=== PATIENT | female | born 1960 | race Caucasian/White ===

== ENCOUNTER 2019-04-14 08:11 | Outpatient (CLI) | payer MEDICARE, BC, SELFPAY ==
--- NOTE | 2019-04-14 08:42 | NM_ITS ---
WS: [id number] Nuclear medicine whole body bone scan, 04/14/2019 Clinical Data: BREAST CANCER/RESTAGING/BONE PAIN Comparison: None. Findings: After the intravenous injection of 24.4 mCi of technetium 99m HDP anterior and posterior wh ole body images were obtained. Additional lateral imaging of the cervical spine, right upper extremit y and skull was performed. The distribution of the radionuclide was normal. Normal renal function could be seen. No evidence of any abnormally increased or decreased activity could be seen. There is no evidence of metastatic dise ase. NM/NM bone scan whole body* [id number] Impression: Negative whole body bone scan.
== END 2019-04-14 08:12 | disposition home or self-care (01) ==
LOC: RAD 08:20
PROVIDERS: Family Provider Nurse Practitioner Family; PCP Family Medicine; Visit Provider Radiology Radiation Oncology
DX: C50.911 Malignant neoplasm of unspecified site of right female breast (principal); Z17.0 Estrogen receptor positive status [ER+]; M89.8X9 Other specified disorders of bone, unspecified site
CPT/HCPCS: 78306; A9561

== ENCOUNTER 2019-05-14 06:00 | Outpatient (CLI) | payer MEDICARE, BC, SELFPAY ==
[2019-05-14 14:23] LABS: Basophils % 0.3 %; Eosinophils # 0.1 10^3/uL (0.0-0.8); Eosinophils % 1.6 %; Hemoglobin 12.5 g/dL (11.5-15.3); Lymphocytes # 1.7 10^3/uL (0.8-4.8); Lymphocytes % 26.9 %; Mean Corpuscular HGB Conc 32.1 g/dL (30.0-36.0); Mean Corpuscular Hemoglobin 30.9 pg (28.0-34.0); Mean Corpuscular Volume 96.3 fL (81-99); Mean Platelet Volume 10.7 fL (7.4-10.4); Monocytes # 0.6 10^3/uL (0.2-0.9); Monocytes % 8.8 %; Neutrophils % 62.1 %; Nucleated Red Blood Cells % 0 %; Platelet Count 137 10^3/cmm (130-400); Red Blood Count 4.05 10^6/uL (4.1-5.3); Red Cell Distribution Width 12.9 % (12.1-15.1); White Blood Count 6.4 10^3/uL (4.0-10.0)
[2019-05-14 14:40] LABS: Alanine Aminotransferase 43 U/L (0-33); Albumin Level 3.9 g/dL (3.5-5.2); Alkaline Phosphatase 73 IU/L (35-105); Anion Gap 16.2 (5-19); Aspartate Amino Transferase 57 U/L (0-32); Blood Urea Nitrogen 9 mg/dL (6-20); Calcium 9.9 mg/dL (8.5-10.5); Carbon Dioxide 29 mmol/L (22-29); Chloride 102 mmol/L (98-107); Globulin 3.5 g/dL (1.3-4.6); Glomerular Filtration Rate 57.4 mL/min (90-130); Glucose 217 mg/dL (65-115); Potassium 4.2 mmol/L (3.5-5.1); Sodium 143 mmol/L (136-145); Total Bilirubin 0.3 mg/dL (0.15-1.2); Total Protein 7.4 g/dL (6.6-8.7)
[2019-05-14 15:15] LABS: Estmated Average Glucose 166; Hemoglobin A1C 7.4 % (4.0-6.0)
== END 2019-05-14 06:01 | disposition home or self-care (01) ==
LOC: ONCMED 05-15 10:31
PROVIDERS: Radiology Radiation Oncology; Family Provider Nurse Practitioner Family; PCP Family Medicine; Visit Provider Internal Medicine Medical Oncology
DX: C50.811 Malignant neoplasm of overlapping sites of right female breast (principal); D50.8 Other iron deficiency anemias; E55.9 Vitamin D deficiency, unspecified; Z17.0 Estrogen receptor positive status [ER+]; Z79.899 Other long term (current) drug therapy
CPT/HCPCS: 80053; 83036; 85025

== ENCOUNTER 2019-12-18 10:49 | Emergency (ER) | payer MEDICARE, BC, SELFPAY ==
[2019-12-18 11:08] VITALS: BP 126/81; PULSE 73; RESP 18; TEMP 36.2; O2SAT 95; BMI 34.9
--- NOTE | 2019-12-18 11:14 | CT_ITS ---
WS: [id number] CT ABDOMEN AND PELVIS WITH CONTRAST HISTORY: Left-sided abdominal pain with distention. History of breast cancer. TECHNIQUE: Imaging performed of the abdomen and pelvis with IV contrast. Single phase imaging of the abdomen. Coronal and sagittal reformats are submitted. All CT scans at [facility] use at least one of these dose optimization techniques: automated exposure control; mA and/or kV adjustment per patient size (includes targeted exams where dose is matched to clinical indication); or iterativ e reconstruction. IV CONTRAST: Visipaque 320; 95 mL IV. Oral contrast: No DLP: 1298.76 mGy.cm COMPARISON: 05/20/2017 Lower thorax: Lung bases are clear. Moderate cardiomegaly. Small hiatal hernia. Liver/biliary system: Liver is moderately enlarged. No mass or bile duct dilatation. Gallbladder: Mildly hydropic gallbladder. No adjacent wall thickening or fluid. Common bile duct is n ormal size. Small stones in the gallbladder cannot be excluded. Pancreas: Normal. Spleen: Normal. Adrenal glands: Normal. Right kidney: Normal. Left kidney: Nonobstructing 2 mm stone lower pole. No hydronephrosis or mass. Aorta: Mild atherosclerosis with no aneurysm. Lymphadenopathy: There are small RIGHT lower quadrant lymph nodes. Free fluid: None. GI tract: The appendix is normal. Very subtle area of inflammation and wall thickening involving the small bowel in the central pelvis. Terminal ileum also has very mild wall thickening and hyperemia. V tate subtle changes of inflammation. No evidence for diverticulitis or obstruction. Abdominal wall: Unremarkable abdominal wall. No hernia. Pelvis: Small amount of air in the urinary bladder from recent catheterization probably. Bones: Mild degenerative disc disease at L5-S1. CT/CT abdomen pelvis w con* [id number] IMPRESSION: 1. Normal appendix. 2. Hydropic appearing gallbladder without adjacent inflammation. 3. There is a small amount of edema with mild wall thickening involving the di stal small bowel. Consider mild enterocolitis. No GI tract obstruction or diver ticulitis.
--- NOTE | 2019-12-18 11:41 | W.ED.ABDPA2 ---
HPI - Abdominal Pain General: Chief Complaint: Abdominal Pain Stated Complaint: ABD PAIN Time Seen by Provider: 12/18/19 11:14 History of Present Illness: HPI narrative: Patient over by urgent care for abdominal pain. Patient had a problem with constipation the last 3 days. She is on Dilaudid for pain related to her cancer treatment that she has had. She had history of left breast cancer with mastectomy and then had recent tumors in her skin that removed back in April. Patient states her bowels are working good she is hurting more in the left lower side. Says she is having swelling on her left side of her abdomen MD elicited complaint: abdominal pain Pertinent past history: constipation Onset (ago): day(s) Pain Consistency: constant Location: LLQ Severity: moderate Quality: cramping and aching Exacerbating factors: nothing Relieving factors: nothing Associated Symptoms: Reports constipation; Denies chills and fever(s) Review of Systems Const: Denies: fever(s), chills or body aches Eyes: Denies: change in vision or blurry vision ENMT: Denies: throat pain or nasal congestion Card: Denies: chest pain or dyspnea on exertion Resp: Denies: dyspnea, productive cough or non-productive cough GI: Reports: constipation Musc: Denies: extremity pain Skin/Breast: Denies: rash Neuro: Denies: headache(s) Psych: Denies: anxiety or depression Ignacio/Lymph: Denies: easy bruising [facility] ED PFSH: Social History (Updated 12/18/19 @ 10:27 by Tatyana Cruz LPN) Smoking and tobacco status: never smoked Alcohol intake: never Physical Exam Const: COMMON NORMALS: no acute distress, average body habitus and patient oriented x3 HENMT: COMMON NORMALS: normocephalic HEAD & SCALP: normal to inspection and normocephalic FACE & SINUS: normal facial exam Eye: COMMON NORMALS: conjunctivae normal GENERAL EYE: appearance normal, both eyes and all related structures CONJUNCTIVA: Yes conjunctivae normal Neck/C-Spine: COMMON NORMALS: no JVD Chest: COMMONS NORMALS: normal inspection of the chest Resp: COMMON NORMALS: normal respiratory effort and clear to auscultation bilaterally AUSCULTATION: clear to auscultation bilaterally Cardio: COMMON NORMALS: no JVD, regular rate and regular rhythm RATE: regular rate RHYTHM: regular rhythm GI: AUSCULTATION: Yes Hypoactive bowel sounds present PALPATION: Yes Tenderness to palpation present (GI) Details: LLQ PERCUSSION: dullness to percussion Extremity: COMMON NORMALS: normal to inspection and full ROM Neuro: COMMON NORMALS: patient oriented x3 Course Vital Signs: Vital signs: Vital Signs Temperature 97.2 F L 12/18/19 11:08 Pulse Rate 74 12/18/19 14:25 Respiratory Rate 18 12/18/19 14:25 Blood Pressure 141/70 12/18/19 14:25 Pulse Oximetry 98 12/18/19 14:25 MDM - Abdominal Pain MDM Narrative: Medical decision making narrative: Went over test results patient CT is negative patient is worried that cancer might spread from her previous breast cancer she had. Patient will increase fiber in diet drink more fluids take stool softener and laxative. Lab Data: Labs: Lab Results 12/18/19 12/18/19 12/18/19 Range/Units 12:26 12:26 12:57 WBC 5.8 (4.0-10.0) 10^3/ uL RBC 3.94 L (4.1-5.3) 10^6/u L Hgb 12.1 (11.5-15.3) g/dL Hct 37.5 (37.0-47.0) % MCV 95.2 (81-99) fL MCH 30.7 (28.0-34.0) pg MCHC 32.3 (30.0-36.0) g/dL RDW 13.4 (12.1-15.1) % Plt Count 154 (130-400) 10^3/c mm MPV 10.7 H (7.4-10.4) fL Neut % (Auto) 65.1 % Lymph % (Auto) 21.2 % [place] % (Auto) 10.1 % Eos % (Auto) 2.4 % Baso % (Auto) 0.5 % Neut # (Auto) 3.75 (1.8-7.7) 10^3/u L Lymph # (Auto) 1.2 (0.8-4.8) 10^3/u L [place] # (Auto) 0.6 (0.2-0.9) 10^3/u L Eos # (Auto) 0.1 (0.0-0.8) 10^3/u L Baso # (Auto) 0.0 (0.0-0.1) 10^3/u L Nucleated RBC % (a uto) 0 % Nucleated RBCs # 0.0 /100WBC Sodium 141 (136-145) mmol/L Potassium 3.9 (3.5-5.1) mmol/L Chloride 101 (98-107) mmol/L Carbon Dioxide 29 (22-29) mmol/L Anion Gap 14.9 (5-19) BUN 12 (6-20) mg/dL Creatinine 0.9 (0.5-0.9) mg/dL GFR Calculation 64.5 L (90-130) mL/min Glucose 143 H (65-115) mg/dL Calculated Osmolal ity 294 (285-295) mOsm/k g Calcium 9.9 (8.5-10.5) mg/dL Total Bilirubin 0.5 (0.15-1.2) mg/dL AST 64 H (0-32) U/L ALT 39 H (0-33) U/L Alkaline Phosphata se 104 (35-105) IU/L Total Protein 7.7 (6.6-8.7) g/dL Albumin 4.3 (3.5-5.2) g/dL Globulin 3.4 (1.3-4.6) g/dL Urine Color Yellow (Yellow) Urine Appearance Cloudy (CLEAR) Urine pH 8 H (5-7) Ur Specific Gravit y 1.010 (1.005-1.030) Urine Protein Neg (Negative) Urine Glucose (UA) Norm (Normal) Urine Ketones Negative (Negative) Urine Blood Neg (Negative) Urine Nitrate Positive H (Negative) Urine Bilirubin Neg (Negative) Prot Sulfosalicyli c Acd Negative (Negative) Urine Urobilinogen Norm (Negative) mg/dL Ur Leukocyte Za ase 2+ H (Negative) Urine RBC 0-4 H (0-2) /hpf Urine WBC 15-25 H (0-5) /hpf Ur Squamous Epith Cells 5-10 H (0-5) /hpf Amorphous Sediment Not Reportable Urine Bacteria 4+ H (NONE) /hpf Discharge Plan Discharge Patient Disposition: Home Clinical Impression: Gastroenteritis Condition: Stable Prescriptions: No Action metformin 500 mg tablet 500 mg PO BID RF: 0 fludrocortisone 0.1 mg tablet 0.05 mg PO DAILY RF: 0 multivitamin with minerals [Multiple Vitamin-Minerals] Tablet 1 tab PO DAILY RF: 0 gabapentin 600 mg tablet 600 mg PO TID RF: 0 lorazepam 1 mg tablet 1 mg PO QID PRN (Reason: Anxiety) RF: 0 promethazine 25 mg tablet 25 mg PO Q6H PRN (Reason: N/V) RF: 0 hydromorphone 4 mg tablet 4 mg PO Q6H PRN (Reason: Pain) RF: 0 magnesium oxide [MagOx] 400 mg (241.3 mg magnesium) tablet 400 mg PO DAILY RF: 0 escitalopram oxalate [Lexapro] 20 mg tablet 20 mg PO DAILY RF: 0 famotidine 20 mg tablet 20 mg PO DAILY RF: 0 meloxicam 15 mg tablet 15 mg PO DAILY RF: 0 omeprazole 20 mg capsule,delayed release(DR/EC) 20 mg PO DAILY RF: 0 lisinopril-hydrochlorothiazide 20-12.5 mg tablet 1 tab PO BID RF: 0 Discharge Orders: Discharge Order (Routine); Ordered 12/18/19 Ordered By: Michael Mars Referrals: Camila Garay DO [Primary Care Provider] - Discharge Diet: Advance as tolerated Discharge Activity: Resume usual activity Patient Instructions: Gastroenteritis (ED) Activity Restrictions/Additional Instructions: Follow-up with medical provider as directed. Return to the ER or your medical provider if condition worsens. Please read and understand discharge instructions. If any questions ask please. Discharge Date/Time: 12/18/19 14:26 Coding Level of Care Code ED Orthopedic Specialist for Tamia Fwd Exam Comprehensive
[2019-12-18] MEDS: sodium chloride 0.9% 1,000 ML 999 ML IV (12:21)
[2019-12-18 12:31] LABS: Basophils % 0.5 %; Eosinophils # 0.1 10^3/uL (0.0-0.8); Eosinophils % 2.4 %; Hematocrit 37.5 % (37.0-47.0); Hemoglobin 12.1 g/dL (11.5-15.3); Lymphocytes # 1.2 10^3/uL (0.8-4.8); Lymphocytes % 21.2 %; Mean Corpuscular HGB Conc 32.3 g/dL (30.0-36.0); Mean Corpuscular Hemoglobin 30.7 pg (28.0-34.0); Mean Corpuscular Volume 95.2 fL (81-99); Mean Platelet Volume 10.7 fL (7.4-10.4); Monocytes # 0.6 10^3/uL (0.2-0.9); Monocytes % 10.1 %; Neutrophils # 3.75 10^3/uL (1.8-7.7); Neutrophils % 65.1 %; Nucleated Red Blood Cells % 0 %; Platelet Count 154 10^3/cmm (130-400); Red Blood Count 3.94 10^6/uL (4.1-5.3); Red Cell Distribution Width 13.4 % (12.1-15.1); White Blood Count 5.8 10^3/uL (4.0-10.0)
[2019-12-18] MEDS: iodixanol 320 mg/mL 100mL Btl IV (12:33)
[2019-12-18 13:01] LABS: Alanine Aminotransferase 39 U/L (0-33); Albumin Level 4.3 g/dL (3.5-5.2); Alkaline Phosphatase 104 IU/L (35-105); Anion Gap 14.9 (5-19); Aspartate Amino Transferase 64 U/L (0-32); Blood Urea Nitrogen 12 mg/dL (6-20); Calcium 9.9 mg/dL (8.5-10.5); Carbon Dioxide 29 mmol/L (22-29); Chloride 101 mmol/L (98-107); Globulin 3.4 g/dL (1.3-4.6); Glomerular Filtration Rate 64.5 mL/min (90-130); Glucose 143 mg/dL (65-115); Osmolality Calculated 294 mOsm/kg (285-295); Potassium 3.9 mmol/L (3.5-5.1); Sodium 141 mmol/L (136-145); Total Bilirubin 0.5 mg/dL (0.15-1.2); Total Protein 7.7 g/dL (6.6-8.7)
[2019-12-18 13:57] VITALS: BP 141/70; PULSE 76; RESP 18
[2019-12-18 14:03] VITALS: BP 141/70; PULSE 72; RESP 16
--- NOTE | 2019-12-18 14:05 | PC.NURSE ---
REPORT RECEIVED FROM [facility].
[2019-12-18 14:25] VITALS: BP 141/70; PULSE 74; RESP 18; O2SAT 98
[2019-12-18 14:29] LABS: Add Urine Microscopic? YES; Bilirubin Urine Neg (Negative); Blood Urine Neg (Negative); Glucose Urine UA Norm (Normal); Ketones Urine Negative (Negative); Leukocyte Esterase Urine 2+ (Negative); Nitrate Urine Positive (Negative); Protein Urine Neg (Negative); Sulfosalicylic Acid Urine Negative (Negative); Urine Appearance Cloudy (CLEAR); Urine Color Yellow (Yellow); Urobilinogen Urine Norm (Negative); pH Urine 8 (5-7)
[2019-12-18 14:31] LABS: Bacteria Urine 4+ /hpf
[2019-12-18 14:33] LABS: Add Urine Culture? Yes; RBC Urine 0-4 /hpf (0-2); WBC Urine 15-25 /hpf (0-5)
== END 2019-12-18 14:26 | disposition home or self-care (01) ==
PROVIDERS: Emergency Provider Nurse Practitioner Family; PCP Family Medicine
DX: K52.9 Noninfective gastroenteritis and colitis, unspecified (principal)
CPT/HCPCS: 12345; 74177; 80053; 81001; 85025; 87077; 87086; 87186; 96360; 99282; 99283; J7030; Q9967

== ENCOUNTER 2020-01-08 07:10 | Outpatient (CLI) | payer MEDICARE, BC, SELFPAY ==
--- NOTE | 2020-01-08 07:00 | XR_ITS ---
WS: [id number] KUB, 01/08/2020 Clinical Data: KIDNEY STONE Comparison: CT abdomen, 12/18/2019 Findings: No abnormal intraabdominal masses or calcifications are seen. There is no dilatated small bowel or ev idence of obstruction. There are phleboliths in the true pelvis but no definite ureteral calculi. There is a calcification t o the right of the sacrum just inferior to the right SI joint but this was not present on the CT abdo men pelvis. There is a large amount of fecal material throughout the colon obscuring detail over the kidneys. XR/XR KUB [id number] Impression: 1. Phleboliths in the true pelvis with a calcification to the right of the sacr um. 2. Fecal material obscures detail over both kidneys.
== END 2020-01-08 07:11 | disposition home or self-care (01) ==
LOC: RAD 07:14
PROVIDERS: PCP Family Medicine; Visit Provider Nurse Practitioner Family
DX: N20.0 Calculus of kidney (principal); I87.8 Other specified disorders of veins
CPT/HCPCS: 74018; 80053; 81001

== ENCOUNTER → 2020-03-12 14:11 | Outpatient (BNVA) | payer MEDICARE, BC, SELFPAY | PROVIDERS: PCP Family Medicine; Visit Provider Surgery | DX: R19.4 Change in bowel habit (principal) | CPT/HCPCS: 87635 ==

== ENCOUNTER 2020-03-17 08:17 | Day surgery (SDC) | payer MEDICARE, BC, SELFPAY ==
[2020-03-15 10:28] VITALS: BMI 34.1
[2020-03-17 08:48] VITALS: BP 125/82; PULSE 90; RESP 18; TEMP 36.1; O2SAT 95
[2020-03-17] MEDS: sodium chloride 0.9% 1,000 ML 30 ML IV (08:59)
[2020-03-17 09:02] LABS: Glucose Point of Care 142 mg/dL (70-110)
--- NOTE | 2020-03-17 09:26 | ANES.PREANE2 ---
Pre-Anesthetic Assessment Pre-Anesthetic Assessment: Height/Weight: Height 1.65 m Weight 92.986 kg Temp Pulse Resp BP Pulse Ox 97 F L 90 18 125/82 95 03/17/20 08:48 03/17/20 08:48 03/17/20 08:48 03/17/20 08:48 03/17/20 08:48 Preop Diagnosis: constipation Proposed Procedure: Operation Date: 03/17/20 09:30 Proposed Procedures p Colonoscopy 42246 r19.4(Not Applicable) - Lázaro Kitchen MD Was Beta Kayla taken within 24 hours: Yes Last intake: Intake Last Liquid Date 03/16/20 Last Liquid Time 20:00 Last Solid Date 03/15/20 Last Solid Time 20:00 Social: Social History: No alcohol and No tobacco Exam: Pre-Anes Outpt Exam: alert, oriented x 3, clear to auscultation bilaterally and regular rate & rhythm Airway: Submandibular: WNL Cervical ROM: Other (limited) MP: 2 Pulmonary: Pulmonary: None reported CV/HEM: CV/HEM: HTN : : None reported Hepatic: Hepatic: None reported GI: GI: GERD Metabolic: Metabolic: DM Musc/skel: Musc/skel: None reported Neuropsych: Neuropsych: None reported Anesthetic Plan: ASA status: 3 Anesthesia: MAC Meds/Allergies Current Medications: Current Medications Generic Name Dose Route Start Last Admin Trade Name Freq PRN Reason Stop Dose Admin Sodium Chloride 1,000 mls @ 30 ml s/hr 03/17/20 08:45 03/17/20 08:59 Sodium Chloride 0.9% IV 03/18/20 08:44 30 mls/hr .Q24H MARELY Administration PFSH Anesthesia PFSH: Medical History DM2 (diabetes mellitus, type 2) GERD with esophagitis HTN (hypertension) Hx of breast cancer Hyperlipidemia Left renal stone Surgical History H/O breast biopsy H/O mastectomy BILATERAL History of back surgery Hx of breast implants, bilateral REMOVAL Status post colonoscopy Family History Denies family history of Anesthesia complication Bleeding disorder Social History Smoking and tobacco status: never smoked Alcohol intake: never Marital status: Current occupational status: disabled History of recent travel: No Data Anesthesia Other Labs: Laboratory Results - last 48 hr 03/17/20 08:57 POC Glucose 142 Cardiac Studies: No Data to Display
--- NOTE | 2020-03-17 10:05 | P.HP_ITS ---
Same Day Surgery H&P Indication for Procedure/HPI DATE OF PROCEDURE: March 17, 2020 CHIEF COMPLAINT/INDICATIONFOR SURGICAL PROCEDURE: constipation PREOP DIAGNOSIS: constipation PLANNED PROCEDRUE: Operation Date: 03/17/20 09:30 Proposed Procedures p Colonoscopy 19095 r19.4(Not Applicable) - Lázaro Kitchen MD Medications/Allergies* Home Medications Medication Instructions Recorded Confirmed Type escitalopram oxalate 20 mg tablet 20 mg PO DAILY 12/18/19 03/17/20 History hydromorphone 4 mg tablet 4 mg PO Q6H PRN 12/18/19 03/17/20 History lorazepam 1 mg tablet 1 mg PO QID PRN 12/18/19 03/17/20 History magnesium oxide 400 mg (241.3 mg 400 mg PO DAILY 12/18/19 03/17/20 History magnesium) tablet meloxicam 15 mg tablet 15 mg PO DAILY 12/18/19 03/17/20 History metformin 500 mg tablet 500 mg PO BID 12/18/19 03/17/20 History multivitamin with minerals 1 tab PO DAILY 12/18/19 03/17/20 History omeprazole 20 mg capsule,delayed 20 mg PO DAILY 12/18/19 03/17/20 History release promethazine 25 mg tablet 25 mg PO Q6H PRN 12/18/19 03/17/20 History amlodipine 5 mg-benazepril 40 mg 1 cap PO DAILY 01/08/20 03/17/20 History capsule anastrozole 1 mg tablet 1 mg PO DAILY 01/08/20 03/17/20 History vmvljgu-drxlvlmna-wjvm tablet 1 tab PO DAILY tab 01/08/20 03/17/20 History cholecalciferol (vitamin D3) 25 25 mcg PO DAILY 01/08/20 03/17/20 History mcg (1,000 unit) capsule fludrocortisone 0.1 mg tablet 0.1 mg PO DAILY tab 01/08/20 03/17/20 History gabapentin 600 mg tablet 600 mg PO QID tab 01/08/20 03/17/20 History melatonin 10 mg capsule 10 mg PO DAILY 01/08/20 03/17/20 History metoprolol tartrate 25 mg tablet 12.5 mg PO BID 01/08/20 03/17/20 History Allergies/Adverse Reactions Allergy/AdvReac Type Severity Reaction Status Date / Time Penicillins Allergy RASH Verified 03/17/20 08:42 Current Medications: Generic Name Dose Route Start Last Admin Trade Name Sarabjit PRN Reason Stop Dose Admin Sodium Chloride 1,000 mls @ 30 mls/hr 03/17/20 08:45 03/17/20 08:59 Sodium Chloride 0.9% IV 03/18/20 08:44 30 mls/hr .Q24H MARELY Administration Pertinent History/Comorbid Conditions* Medical History (Updated 01/08/20 @ 09:29 by Mary Ward APRN) DM2 (diabetes mellitus, type 2) GERD with esophagitis HTN (hypertension) Hx of breast cancer Hyperlipidemia Left renal stone Surgical History (Updated 02/23/20 @ 16:19 by Lázaro Kitchen MD) H/O breast biopsy H/O mastectomy BILATERAL History of back surgery Hx of breast implants, bilateral REMOVAL Status post colonoscopy Family History (Updated 02/23/20 @ 16:01 by KATIE Talavera) Denies family history of Anesthesia complication Bleeding disorder Social History Smoking and tobacco status: never smoked Alcohol intake: never Marital status: Current occupational status: disabled History of recent travel: No Pertinent Exam Findings alert and oriented x 3 Recommendations Surgery/Procedure today Coding Level of Care Code Acute Neurology Manager for Tamia Cruz
[2020-03-17 10:30] VITALS: BP 126/59; PULSE 76; RESP 16; TEMP 36.6; O2SAT 94
[2020-03-17 10:45] VITALS: BP 144/59; PULSE 78; RESP 18; TEMP 36.7; O2SAT 96
--- NOTE | 2020-03-17 16:28 | ANE.PACU2 ---
Inpatient post-anesthesia follow up: Airway intact: Yes Vital signs: Temperature 98.1 F Pulse Rate 78 Respiratory Rate 18 Blood Pressure 144/59 Pulse Oximetry 96 Oxygen Delivery Me thod Room Air Oxygen Flow Rate 3 Fraction of Inspir ed Oxygen Hydration adequate: Yes Nausea and vomiting: No Pain level: 2 Mental status: Baseline
== END 2020-03-17 11:14 | disposition home or self-care (01) ==
PROVIDERS: PCP Family Medicine; Visit Provider Surgery
PROC: 0DJD8ZZ Inspection of Lower Intestinal Tract, Via Natural or Artificial Opening Endoscopic (ICD-10-PCS; CPT 45378; principal; 2020-03-17 09:30)
DX: K59.00 Constipation, unspecified (principal); D12.2 Benign neoplasm of ascending colon; K57.30 Diverticulosis of large intestine without perforation or abscess without bleeding; E11.9 Type 2 diabetes mellitus without complications; I10 Essential (primary) hypertension; Z85.3 Personal history of malignant neoplasm of breast; E78.5 Hyperlipidemia, unspecified; K21.9 Gastro-esophageal reflux disease without esophagitis
CPT/HCPCS: 12345; 36416; 45385; 82962; 88305; J2704; J7030

== ENCOUNTER 2020-04-05 08:00 | Outpatient (CLI) | payer MEDICARE, BC, SELFPAY ==
[2020-04-05 09:30] VITALS: O2SAT 97
[2020-04-05] MEDS: HYDROmorphone 1 mg/mL INJ 1 mL 2 MG SUBCUT (09:30)
[2020-04-05 09:34] LABS: Basophils % 0.5 %; Eosinophils # 0.2 10^3/uL (0.0-0.8); Eosinophils % 3.1 %; Hematocrit 31.4 % (37.0-47.0); Hemoglobin 9.8 g/dL (11.5-15.3); Lymphocytes # 1.4 10^3/uL (0.8-4.8); Lymphocytes % 22.9 %; Mean Corpuscular HGB Conc 31.2 g/dL (30.0-36.0); Mean Corpuscular Hemoglobin 29.2 pg (28.0-34.0); Mean Corpuscular Volume 93.5 fL (81-99); Mean Platelet Volume 11.1 fL (7.4-10.4); Monocytes # 0.5 10^3/uL (0.2-0.9); Monocytes % 8.5 %; Neutrophils # 3.72 10^3/uL (1.8-7.7); Neutrophils % 63.1 %; Nucleated Red Blood Cells % 0 %; Platelet Count 171 10^3/cmm (130-400); Red Blood Count 3.36 10^6/uL (4.1-5.3); Red Cell Distribution Width 14.7 % (12.1-15.1); White Blood Count 5.9 10^3/uL (4.0-10.0)
[2020-04-05 09:48] LABS: Alanine Aminotransferase 17 U/L (0-33); Albumin Level 3.9 g/dL (3.5-5.2); Alkaline Phosphatase 224 IU/L (35-105); Anion Gap 14.2 (5-19); Aspartate Amino Transferase 48 U/L (0-32); Blood Urea Nitrogen 17 mg/dL (6-20); Carbon Dioxide 31 mmol/L (22-29); Chloride 100 mmol/L (98-107); Globulin 3.3 g/dL (1.3-4.6); Glomerular Filtration Rate 64.5 mL/min (90-130); Glucose 156 mg/dL (65-115); Osmolality Calculated 297 mOsm/kg (285-295); Potassium 4.2 mmol/L (3.5-5.1); Sodium 141 mmol/L (136-145); Total Bilirubin 0.2 mg/dL (0.15-1.2); Total Protein 7.2 g/dL (6.6-8.7)
--- NOTE | 2020-04-05 10:43 | XR_ITS ---
WS: [id number] LEFT HUMERUS: 2 VIEW(S) TECHNIQUE: AP and lateral. HISTORY: BREAST CANCER/L ARM PAIN COMPARISON: Bone scan 04/14/2019. Permeative lesion with pathological fracture involving the proximal LEFT humeral diaphysis. Mild gualberto osteal reaction with destruction of the normal cortex. Destructive bone lesion extends over length of 8 cm. Bone scan scan from 04/14/2019 reviewed but there was no metastatic lesion in this location. No displacement of the transverse fracture. No joint or soft tissue abnormality. No foreign bodies and visualized upper thorax is unremarkable. XR/[place] [id number] IMPRESSION: Nondisplaced pathological fracture in the proximal LEFT humeral diaphysis.
[2020-04-05 11:23] LABS: Erythrocyte Sedimentation Rate 64 mm/hr (0-15)
[2020-04-06 13:38] LABS: CA 27.29 217 U/mL (<38)
--- NOTE | 2020-04-09 09:20 | ONC FU_ITS ---
Dr. Hwaley Patient Follow-Up Note Patient: Shelli Viveros Unit #: [id number]: 1960 Dicatated By: Chano Hawley M.D.Date of Visit:Apr 05, 2020 Onc Med Follow-up/Prog Note Chief Complaint: Breast cancer. History of Present Illness: This is a 59 year-old woman with grade 3 infiltrating ductal carcinoma of the right breast, ER/MT positive and HER-2/javier amplified, by clinical evaluation stage IIIC (T1c, N3c, M0) at initial diagnosis in December 2014. She developed local recurrence in the right breast reconstruction in January 2019. She had presented in December 2014 with a lump in her right breast. Ultrasound-guided biopsy on 01/28/2015 showed grade 3 infiltrating ductal carcinoma. The tumor was ER positive at 93% and MT positive at 3%. The Ki-67 was elevated at 37%. The HER-2/javier was positive for overexpression, 3+ by IHC with amplification ratio 3.1 by FISH. She was seen by Dr. Kim in [place] for surgical consultation. She had clinical staging with PET/CT on 02/19/2015. Findings included a 1 cm FDG avid ill defined soft tissue mass in the upper central right breast. There were multiple FDG avid subcentimeter right axillary lymph nodes. The largest node measured 1.5 cm. Also noted were 3 subcentimeter FDG avid right supraclavicular lymph nodes, the largest measuring at 1 cm. There was no evidence of any other metastatic disease. Thus by clinical evaluation her disease was stage IIIC (T1c, N3c, M0). She began neoadjuvant chemotherapy with TCH plus Perjeta on 02/22/2016. She completed 6 cycles of treatment on 06/08/2015. She had a very good clinical response to the chemotherapy. On 07/15/2015 she underwent right modified radical mastectomy and left simple mastectomy with bilateral breast reconstruction. Pathology on the mastectomy showed complete response to the neoadjuvant therapy with no residual carcinoma identified in the right breast and no involvement in 11 axillary lymph nodes. The was evidence of treatment effect within the breast and axillary nodes. The left breast showed no atypia or malignancy. She then continued systemic therapy with Herceptin, and she also started adjuvant hormonal therapy with tamoxifen. She completed 52 weeks of Herceptin therapy on 02/17/2016. She stopped tamoxifen in January 2016 due to increasing effects, including bone pain and mood swings. She indicated that she was just generally miserable. On her follow-up visit in March 2016 she was feeling better. Her subsequent laboratory studies were consistent with menopause, and in May 2016 she began further hormonal therapy with anastrozole 1 mg daily. It was stopped after 1 month of treatment due to a significant increase in her musculoskeletal pain. Surveillance CT scans on 01/24/2017 showed no evidence of metastatic disease in the chest, abdomen, or pelvis. A 2 mm nodule in the left lower lobe was noted to be stable. There was evidence of new endobronchial airspace disease in the right upper lobe. A sclerotic focus in the inferior T5 vertebral body appeared unchanged and was noted to be negative on prior PET imaging. Her repeat CT scans and 05/20/2017 showed no evidence of recurrent or metastatic disease. The T5 vertebral body sclerotic focus appeared unchanged. In May 2017 she began further adjuvant hormonal therapy with exemestane 25 mg daily. I had seen her for a scheduled visit on 09/19/2017. She complained that she felt lightheaded and off balance, to the point that she could hardly function. She also reported increased joint pain. I did have her stop the exemestane. In March 2018 she agreed to continue further adjuvant hormonal therapy with tamoxifen 20 mg daily. As of her follow-up visit in August 2018 she appeared to be tolerating it with acceptable toxicity. On 02/17/2019 she was seen for a follow-up visit by Dr. Rosenbaum. At that time she was concerned about some flattening of her left breast reconstruction. She had been aware of some lump on the right side, which she assumed was just scar tissue. Her exam at that time showed 2 separate nodules in the reconstructed right breast, one located in the lateral aspect of the mastectomy incision and the other in the superior flap extending from the incision in the superior direction. She underwent biopsy of both lesions on 02/18/2019. Both showed poorly differentiated (grade 3) invasive ductal carcinoma. The tumor was reported to be weekly ER positive at 2% and weakly MT positive at 1% with HER-2/javier positive at 3+. A next generation sequencing study also showed the tumor to be androgen receptor positive and it showed mutated CDH1 and TP53 along with amplified FGFR1. However, there are no actionable mutations identified. I had seen her for a follow-up visit on 02/25/2019. She had further staging with brain MRI on 03/03/2019. It showed no evidence of metastatic disease. She then had a restaging PET/CT on 03/07/2019. It showed mild, probable postsurgical activity at the lateral right breast dermis. Anterior breast dermal thickening demonstrated mild, nonspecific FDG uptake. A solitary low right axial lymph node measuring 6 mm was too small to reliably characterize by PET. Overall, there were no findings to indicate macroscopic malignancy. In the absence of any evidence of metastatic disease she was referred to Dr. Nelly Lott at [facility] for further surgery, and on 05/26/2019 she underwent excision of right breast skin and implant reconstruction and removal of the left breast implant. She subsequently underwent skin grafting. During that time she also had medical oncology consultation there with Dr. Di Orona. Her other medical illnesses include hyperlipidemia, GERD, and degenerative arthritis. She has additional history of colonic polyps. She is a nonsmoker. INTERIM HISTORY: She was last seen by Dr. Orona at [facility] on 06/08/2019. On review of that visit note, Dr. Orona had discussed the possibility of continuing further systemic therapy with T-DM1, but ultimately she just restarted adjuvant hormonal therapy with anastrozole. However, at the time of that visit, Dr. Orona had also discussed the possibility of having further evaluation with nuclear medicine bone scan, as x-rays of the right humerus had shown a poorly defined lucency in the proximal right humeral shaft, though it was seen only on a single view. The patient failed to return for follow-up either here or at [facility]. On 12/18/2019 she was seen here in the emergency room with abdominal pain and constipation. Her CT abdomen/pelvis showed a small amount of edema with mild wall thickening involving the distal small bowel, suggesting possible mild enterocolitis. There was no evidence of obstruction or diverticulitis. A nonobstructing 2 mm stone was noted in the lower pole of the left kidney. There was no hydronephrosis or other findings. Her indicates that she had subsequent evaluation at [facility] and was found to have evidence of a kidney stone, partial bowel obstruction, and urinary tract infection. Colonoscopy on 03/17/2020 showed a 7 mm sessile polyp in the ascending colon, pathology which was consistent with tubular adenoma. There was no evidence for high-grade dysplasia or malignancy. She is seen for a follow-up visit. She has not been feeling good. She has ongoing complaints with pain in her left shoulder and arm and she also has had pain in her left side and in her left thigh. Within the past couple of days she developed new pain in the right lower back and in the lateral aspect of her right groin. She has very limited activity. She is mostly been confined to bed or chair. ECOG score is 3. Her appetite has been okay. She does not complain of fever, night sweats, or hot flashes. She did have a recent episode of epistaxis. She does not complain of shortness of breath or cough. She has had occasional sharp pain in her chest. She has had nausea on a daily basis. She has a little bit of acid reflux. She has continued to have constipation, which she is currently manages with lactulose. Bladder function has been okay. She does not complain of headache. She sometimes has dizziness. She has some numbness in her left arm and hand. She has having anxiety, but no depression. Medications: amLODIPine Besy-Benazepril HCl 1 (5-40 mg) Capsule Oral daily, Anastrozole 1 (1 mg) Tablet Oral daily, Ativan 1 Tablet (of 1 mg) Oral four times a day PRN, Cholecalciferol 2 Capsule (of 1000 Units) Oral daily, Colace 1 (100 mg) Capsule Oral daily PRN, Enulose 1 tablespoonful(s) (of 10 g/15mL) Solution Oral b.i.d., Fludrocortisone Acetate 1 Tablet (of 0.1 mg) Oral PRN, Gabapentin (600 mg) Capsule Oral four times a day, HYDROmorphone HCl 1 (4 mg) Tablet Oral q 4 to 6 hours PRN, Lexapro 1 Tablet (of 20 mg) Oral daily, Lopressor 0.5 Tablet (of 50 mg) Oral b.i.d., Magnesium Oxide 1 Tablet (of 400 mg) Oral b.i.d., Meloxicam 1 Tablet (of 15 mg) Oral daily, metFORMIN HCl 1 Tablet (of 500 mg) Oral b.i.d., Multivitamin Adults 50+ 1 Tablet Oral daily, Omeprazole 1 Capsule (of 40 mg) Capsule Delayed Release Oral daily, Promethazine HCl 1 - 2 Tablet (of 25 mg) Oral q 6 hours PRN Allergies: Macrobid and Penicillins. Vital Signs: Performed on Apr 05, 2020 08:23 Height - 65.00 in Weight - 205.6 lbs (LOW) BSA - 2.00 sq.m BMI - 34.21 (HIGH) Temperature - 98.0 F (LOW) Pulse - 77 /min Respiration - 17 /min BP - 140/70 mm(hg) O2 Sat - 97 % Pain - 5 Physical Examination: Constitutional - She appears somewhat weak generally, Eyes - Sclerae nonicteric. Conjunctivae clear, ENMT - No lesions noted in the oral cavity, Hematologic/Lymphatic - No cervical or clavicular adenopathy, Respiratory - Lungs are clear with good air movement bilaterally, Cardiovascular - Heart rhythm is regular. There is a II/ systolic murmur. There is no gallop or rub noted, Breasts - There are no chest wall lesions noted. There is no axillary adenopathy noted, Abdomen - Soft. Liver and spleen are not enlarged. There is no abdominal mass or ascites noted and there is no inguinal adenopathy, Extremities - There is no lower extremity edema. There is some mild swelling and induration in the upper left arm and the area is tender to touch, Neurologic - No focal neurologic deficits noted. Historic Problem List: 1. Grade 3 invasive ductal carcinoma of the right breast, ER/MT positive and HER-2/javier amplified. By clinical evaluation her disease was stage IIIC at initial diagnosis in December 2014. 2. Biopsy-proven recurrence of grade 3 invasive ductal carcinoma in the right chest wall/reconstruction in January 2019. The tumor was weakly ER/MT positive. It was again HER-2/javier positive, 3+ by IHC. 3. Hypertension. 4. Hyperlipidemia. 5. Type 2 diabetes. 6. Peripheral neuropathy. 7. History of autonomic neuropathy. 8. GERD. 9. Degenerative arthritis. 10. History of colonic polyps. 11. Chronic anxiety. Problems Adressed with this Encounter and Plan: 1. Grade 3 invasive ductal carcinoma of the right breast, weakly ER/MT positive and HER-2/javier positive, with documented local recurrence in the right chest wall/reconstruction in January 2019. She is seen with new pain at multiple sites, most significant of which appears to be the upper left arm. She also has declining performance status. The symptoms are suspicious for further recurrence/progression of breast cancer. At least some component of the pain, though, may be associated with her adjuvant hormonal therapy, as she has previously had poor tolerance for aromatase inhibitors. She will have additional laboratory studies today to include CBC, comprehensive metabolic profile, sed rate, and a CA 27.29 level. She will be scheduled for restaging PET/CT, and I also will get an x-ray of the left humerus today. She will have further evaluation as indicated. In the meantime, though, she is advised to stop the anastrozole. 2. She has hypertension for which she is on antihypertensive therapy with metoprolol and amlodipine/benazepril. Despite that, she has continued treatment with fludrocortisone, which had initially been started for autonomic neuropathy with orthostatic hypotension. As she has had no recent episodes or symptoms of orthostatic hypotension, the fludrocortisone also will be stopped. 3. She has ongoing problems with constipation, at least some of which may be related to her opiate pain medication. That problem will be further addressed pending outcome of her current lab and imaging studies. Signed By: Chano Hawley M.D. <<Signature on File>>
== END 2020-04-05 08:01 | disposition home or self-care (01) ==
PROVIDERS: PCP Family Medicine; Visit Provider Internal Medicine Medical Oncology
DX: C50.811 Malignant neoplasm of overlapping sites of right female breast (principal); Z17.0 Estrogen receptor positive status [ER+]; D50.9 Iron deficiency anemia, unspecified; E55.9 Vitamin D deficiency, unspecified; S42.295A Other nondisplaced fracture of upper end of left humerus, initial encounter for closed fracture; I10 Essential (primary) hypertension; E78.5 Hyperlipidemia, unspecified; E11.42 Type 2 diabetes mellitus with diabetic polyneuropathy; K21.9 Gastro-esophageal reflux disease without esophagitis; M19.90 Unspecified osteoarthritis, unspecified site; F41.9 Anxiety disorder, unspecified; Z86.010 Personal history of colon polyps; Z79.811 Long term (current) use of aromatase inhibitors; Z79.899 Other long term (current) drug therapy
CPT/HCPCS: 36591; 73060; 80053; 85025; 85651; 86300; 96372; 99215; J1170